=== PATIENT | female | born 1965 ===

== ENCOUNTER 2016-10-31 10:01 | Emergency (ER) | payer OTHER ==
[2016-10-31 10:15] VITALS: RESP 20; TEMP 96.5; O2SAT 99
[2016-10-31 10:20] VITALS: BP 160/89; PULSE 71
== END 2016-10-31 11:39 | disposition home or self-care (01) ==
LOC: ED 10:01
DX: S93.402A Sprain of unspecified ligament of left ankle, initial encounter (principal); W18.43XA Slipping, tripping and stumbling without falling due to stepping from one level to another, initial encounter
CPT/HCPCS: 73610; 99282; 99283; L4360; E0114

== ENCOUNTER 2018-06-10 11:58 | Emergency (ER) | payer OTHER ==
[2018-06-10 12:12] VITALS: PULSE 117; RESP 20; TEMP 96.2; O2SAT 97
[2018-06-10] MEDS ORDERED: ONDANSETRON 4 MG ODT BU ONE (12:29)
[2018-06-10] MEDS ORDERED: ONDANSETRON 4 MG ODT ONE (12:46)
[2018-06-10 13:17] VITALS: BP 128/84
== END 2018-06-10 13:37 | disposition home or self-care (01) | DRG 90 ==
LOC: ED 11:58
DX: S06.0X0A Concussion without loss of consciousness, initial encounter (principal)
CPT/HCPCS: 70450; 99283; A9270-GY

== ENCOUNTER 2018-12-01 08:51 | Emergency (ER) | payer OTHER ==
[2018-12-01 09:03] VITALS: BP 175/93; PULSE 84; RESP 18; TEMP 98.2; O2SAT 98
[2018-12-01] MEDS ORDERED: KETOROLAC TROMETHAMINE 30 MG/ML SOL IM ONE (09:34)
[2018-12-01] MEDS ORDERED: ACETAMINOPHEN 500 MG 500 MG TAB PO ONE (09:34)
[2018-12-01] MEDS ORDERED: CYCLOBENZAPRINE 10 MG TAB PO ONE (09:34)
[2018-12-01] MEDS ORDERED: CYCLOBENZAPRINE 10 MG TAB ONE (09:43)
[2018-12-01] MEDS ORDERED: ACETAMINOPHEN 500 MG 500 MG TAB ONE (09:43)
[2018-12-01] MEDS ORDERED: KETOROLAC TROMETHAMINE 30 MG/ML SOL ONE (09:51)
== END 2018-12-01 11:35 | disposition home or self-care (01) ==
LOC: ED 08:51
DX: M51.17 Intervertebral disc disorders with radiculopathy, lumbosacral region (principal)
CPT/HCPCS: 72120; 96372; 99282; 99283; J1885; A9270-GY